=== PATIENT | female | born 1980 | race Caucasian/White ===

== ENCOUNTER 2018-02-17 07:17 | Day surgery (SDC) | END 2018-02-17 15:32 | disposition home or self-care (01) ==

== ENCOUNTER 2018-09-12 08:24 | Day surgery (SDC) | payer OTHER ==
[~2018-09-12] VITALS: Ht 160 cm; Wt 72.1 kg
[2018-09-12] VITALS (21 sets, daily range): BP systolic 92–133; BP diastolic 40–82; PULSE 64–96; RESP 14–24; Ht 160 cm; Wt 72.1 kg
[~2018-09-12 08:24] MED LIST: AMOX1TAB10 PO; CEFAZOLIN 2 GM/50 ML (PMX) 50 ML IVPB ONE; DOCU-159 PO; IBUP-1542 PO; LACTINEX PO; SOD CHLORIDE 0.9% 1,000 ML IV SCH
[2018-09-12] MEDS ORDERED: BUPIVACAINE 0.25% (MPF) 30 ML INJ ONE (11:28)
--- NOTE | 2018-09-12 11:52 | PREAC ---
Date/Time of Note Date/Time of Note DATE: 09/12/18 TIME: 11:50 Anesthesia Eval and Record Evaluation Time Pre-Procedure Interview DATE: 09/12/18 TIME: 11:50 Age 38 Sex female NPO: 8 hrs Preoperative diagnosis Appendicitis Planned procedure Lap Appendectomy Past Medical History Past Medical History: None Surgery & Anesthesia Issues No known issue Meds Anticoagulation: No Beta Gildardo within 24 hr: No Reason Beta Gildardo not given: Pt. not on B-Gildardo Discontinued Scripts Lactobacillus Acidophilus* (Lactinex*) 1 Tab Chew, 1 TAB PO BID for 10 Days, TAB Prov:SANDRITA BOWMAN MD 07/25/18 Docusate Sodium* (Docusate Sodium*) 100 Mg Capsule, 100 MG PO Q12H PRN for .CONSTIPATION for 7 Days, CAP otc Prov:SANDRITA BOWMAN MD 07/25/18 Ibuprofen* (Ibuprofen*) 600 Mg Tablet, 600 MG PO Q6H PRN for MILD PAIN LEVEL 1-3 for 7 Days, TAB otc Prov:SANDRITA BOWMAN MD 07/25/18 Amoxicillin/Potassium Clav (Amox-Clav 875-125 mg Tablet) 875-125 mg Tab, 875 MG PO BID for 3 Days, #8 TAB Prov:SANDRITA BOWMAN MD 07/25/18 Current Medications Sodium Chloride 1,000 ml @ 75 mls/hr [id number] IV ; Start 09/12/18 at 06:00; Stop 09/12/18 at 23:00 Meds reviewed: Yes Allergies Coded Allergies: No Known Drug Allergies (Unverified Allergy, Unknown, 09/12/18) Allergies Reviewed: Yes Labs/Studies Labs Reviewed: Reviewed by anesthesiologist Result Diagram: 09/12/1892909/12/1830 Laboratory Tests 09/12/18 09:30 test: Negative Studies: ECG Pre-procedure Exam Last vitals Vital Signs Date Temp Pulse Resp B/P (MAP) Pulse Ox O2 O2 Flow FiO2 Time Delivery Rate 09/12/18 97.8 80 126/82 97 09:54 (97) Airway: Adequate mouth opening, Adequate thyromental dist Mallampati: Mallampati II Teeth: Normal Lung: Normal Heart: Normal ASA Physical Status ASA physical status: 2 Emergency: None Planned Anesthetic General/MAC: ETT Planned Pain Management Parenteral pain med Pre-operative Attestations Prior to commencing anesthesia and surgery, the patient was re-evaluated, there was verification of: *The patient's identity *The results of appropriate recent lab work and preoperative vital signs *The above evaluation not changing prior to induction *Anesthetic plan, risk benefits, alternative and complications discussed with patient/family; questions answered; patient/family understands, accepts and wishes to proceed. DONTE REES MD Sep 12, 2018 11:52
[2018-09-12] MEDS ORDERED: MIDAZOLAM 1 MG/ML 2 ML INJ ONE (11:54)
[2018-09-12] MEDS ORDERED: GLYCOPYRROLATE 0.4 MG INJ ONE (12:45)
[2018-09-12] MEDS ORDERED: CEFAZOLIN 1 GM INJ ONE (12:45)
[2018-09-12] MEDS ORDERED: ROCURONIUM 50 MG INJ ONE (12:45)
[2018-09-12] MEDS ORDERED: PROPOFOL 20 ML ONE (12:45)
[2018-09-12] MEDS ORDERED: NEOSTIGMINE 3 MG/3 ML SYRINGE ONE (12:45)
[2018-09-12] MEDS ORDERED: LIDOCAINE 2% (SDV) 5 ML INJ ONE (12:45)
[2018-09-12] MEDS ORDERED: ONDANSETRON 4 MG INJ ONE (12:46)
[2018-09-12] MEDS ORDERED: METOCLOPRAMIDE 10 MG INJ ONE (12:48)
--- NOTE | 2018-09-12 12:49 | OPR ---
Date/Time of Note Date/Time of Note DATE: 09/12/18 TIME: 12:43 Operative Report Procedure Date: Sep 12, 2018 Preoperative Diagnosis subacute appendicitis Postoperative Diagnosis same Operation/Procedure Performed 1. laparoscopic appendectomy 2. subcutaneous therapeutic local anesthesia is injected throughout the incision sites Surgeon see signature line Sheet Tailer none Anesthesia Type: general Estimated Blood Loss: 0 - 10 ml's Transfusion none Specimen appendix Grafts/Implants none Complications none Pt Condition Post Procedure: stable Indications This is a 38-year-old female who has subacute appendicitis. She was evaluated at the ER with CT scan findings showing a dilated appendix. However at that time she was not treated with surgery but with antibiotics. She has had persistent pain in the right lower quadrant with no other explanation for the pain. She is brought to the OR for laparoscopic appendectomy possible open. Risks alternatives benefits and percent were discussed the patient. Potential complications including but not limited to bleeding infection pain and need for additional operations were discussed the patient. In particular as the CT scan showed a dilated appendix but no other obvious findings the patient was told that whether we find a problem with the appendix or not but the appendix will be removed. She expressed understanding and was okay with this discussion and consented to the operation. Procedure Description Patient is taken to the OR and prepped and draped in usual sterile fashion. Surgical time was performed. IV antibiotics given. Infraumbilical transverse incision was made with a 15 blade. Dissection with cautery was carried to the fascia. The fascia was grasped with [place]'s and divided with curved [place] scissors. 0 Vicryl U stitch was placed into the fascial incision. Welch trocar was introduced. Pneumoperitoneum was established. Suprapubic 5 mm optical trocar was placed under direct visualization ensuring that the trocar is kept far away from the bladder. Left lower quadrant 12 mm optical trochars placed under direct visualization. The patient was placed in reverse Trendelenburg with the right side up. There is visualization of the ileum and the right colon. Orientation is made to identify the appendix. The base of the appendix is identified and dissected out carefully using [place] graspers. A 35 mm echelon vascular stapler was used to divide the base of the appendix. The mesoappendix was also identified and divided with a 35 mm echelon vascular stapler. Additional clips were applied for additional hemostasis of the mesoappendix. The appendix was then retrieved using Endo Catch bag. Good hemostasis was again ensured. All ports were removed under direct visualization. The infraumbilical 0 Vicryl was tied down. All incisions were then closed using sage. Therapeutic subcutaneous local anesthesia was injected at the incision site. Dressings were applied. Alonso LOZANO Sep 12, 2018 12:49
--- NOTE | 2018-09-12 12:57 | PAC ---
Date/Time of Note Date/Time of Note DATE: 09/12/18 TIME: 12:57 Post-Anesthesia Notes Post-Anesthesia Note Last documented vital signs Vital Signs Date Temp Pulse Resp B/P (MAP) Pulse Ox O2 O2 Flow FiO2 Time Delivery Rate 09/12/18 97.8 80 126/82 97 09:54 (97) Activity: WNL Respiratory function: WNL Cardiovascular function: WNL Mental status: Baseline Pain reasonably controlled: Yes Hydration appropriate: Yes Nausea/Vomiting absent: Yes Comments BP:133/78, P:74, Spo2:100%, T:98,8 DONTE REES MD Sep 12, 2018 12:57
[2018-09-12] MEDS ORDERED: ONDANSETRON 4 MG INJ IV PRN (13:00)
[2018-09-12] MEDS ORDERED: HYDROCODONE/APAP (5/325) TAB PO ONE (13:00)
[2018-09-12] MEDS ORDERED: DIPHENHYDRAMINE 50 MG INJ IV PRN (13:00)
[2018-09-12] MEDS ORDERED: KETOROLAC 30 MG INJ IV PRN (13:00)
[2018-09-12] MEDS ORDERED: FENTAnyl 50 MCG/ML VIAL IV PRN (13:00)
[2018-09-12] MEDS ORDERED: METOCLOPRAMIDE 10 MG INJ IV PRN (13:00)
[2018-09-12] MEDS ORDERED: HYDROmorphONE 1 MG/5 ML IV SYRINGE IV PRN (13:00)
[2018-09-12] MEDS: HYDROmorphONE 1 MG/5 ML IV SYRINGE IV PRN ×2 (13:03→13:11)
[2018-09-12] MEDS: MEPERIDINE 25 MG INJ IV PRN ×2 (13:11→13:57)
[2018-09-12] MEDS ORDERED: MEPERIDINE 25 MG INJ IM STA (14:01)
[2018-09-12] MEDS: SOD CHLORIDE 0.45% 1,000 ML IV SCH (19:01)
[2018-09-12] MEDS: morphine 2 MG INJ IV PRN (21:14)
[2018-09-12] MEDS: ONDANSETRON 4 MG INJ IV PRN (21:43)
[2018-09-13] MEDS: ONDANSETRON 4 MG INJ IV PRN ×3 (01:43→16:45)
[2018-09-13] MEDS: morphine 2 MG INJ IV PRN ×2 (01:43→06:00)
[2018-09-13] MEDS: SOD CHLORIDE 0.45% 1,000 ML IV SCH ×2 (02:00→06:00)
[2018-09-13 02:07] VITALS: BP 104/63; PULSE 63; RESP 19
[2018-09-13 08:24] VITALS: BP 108/67; PULSE 81; RESP 18
[2018-09-13] MEDS: HYDROCODONE/APAP (5/325) TAB PO PRN ×2 (11:35→16:45)
[2018-09-13 14:00] VITALS: BP 116/77; PULSE 61; RESP 20
--- NOTE | 2018-09-13 14:23 | PN ---
Date/Time of Note Date/Time of Note DATE: 09/13/18 TIME: 14:22 Assessment/Plan VTE Prophylaxis Risk score (from Ns)>0 risk: 2 SCD applied (from Ns): No SCD contraindicated: other Pharmacological prophylaxis: other Lines/Catheters IV Catheter Type (from Nrsg): Peripheral IV Urinary Cath still in place: No Assessment/Plan Assessment/Plan s/p lap appy doing well dc home Result Diagram: 09/12/18 0930 09/12/18 0930 Results 24hrs Laboratory Tests Test 09/13/18 06:15 Lab Scanned Report LAB Subjective 24 Hr Interval Summary Free Text/Dictation patient doing well, tolerating diet Exam/Review of Systems Exam Vitals Vital Signs Date Temp Pulse Resp B/P (MAP) Pulse Ox O2 O2 Flow FiO2 Time Delivery Rate 09/13/18 98.1 81 18 108/67 98 08:24 (81) 09/12/18 Room Air 14:10 Intake and Output 09/12/18 09/12/18 09/13/18 1515:00 23:00 07:00 IntakeIntake Total 1000 ml 300 ml 1000 ml OutputOutput Total 10 ml BalanceBalance 990 ml 300 ml 1000 ml Exam incision had bled a little and is now not bleeding c/d/i Results Results 24hrs Laboratory Tests Test 09/13/18 06:15 Lab Scanned Report LAB Medications Medication Current Medications Morphine Sulfate (morphine) 2 mg Q2H PRN IV SEVERE PAIN LEVEL 7-10 Last administered on 09/13/18at 06:00; Admin Dose 2 MG; Start 09/12/18 at 16:00 Sodium Chloride 1,000 ml @ 100 mls/hr Q10H IV Last administered on 09/13/18at 06:00; Admin Dose 100 MLS/HR; Start 09/12/18 at 16:00 Ondansetron HCl (Zofran Inj) 4 mg Q4H PRN IV NAUSEA AND/OR VOMITING Last administered on 09/13/18at 05:59; Admin Dose 4 MG; Start 09/12/18 at 21:30 Acetaminophen/ Hydrocodone Bitart ([place] (5/325)) 1 tab Q4H PRN PO MODERATE KENNY N LEVEL 4-10 Last administered on 09/13/18at 11:35; Admin Dose 1 TAB; Start 09/13/18 at 11:30 Alonso LOZANO Sep 13, 2018 14:23
--- NOTE | 2018-09-13 14:35 | PDOCDIS ---
Discharge Instructions CONDITION [id number] Patient Condition: [id number] Good HOME CARE INSTRUCTIONS: [id number] Diet Instructions: Hlfcv3h Regular ACTIVITY: [id number] Activity Restrictions: Skqdd1x Slowly Increase Activity Avoid heavy lifting [id number] Bathing Restrictions: [id number] Shower FOLLOW UP/APPOINTMENTS Follow-up Plan F/u with Dr. Lofton next week ROMEO SALINAS MD Sep 13, 2018 14:35
--- NOTE | 2018-09-13 16:54 | HP ---
DATE OF ADMISSION: 09/12/2018 CHIEF COMPLAINT AND HISTORY OF PRESENT ILLNESS: The patient is a 38-year-old female who was admitted at [facility] back in 07/2018 due to appendicitis. The patient had CT of the abdo men. The patient was diagnosed with possible appendicitis. The patient was seen by PROGRAM DEVELOPMENT SPECIALIST as well as Bhavna Gardner. The patient was treated with antibiotic and was seen by Dr. Reid Pettit. The patient w as subsequently seen by Dr. Lofton as an outpatient and was diagnosed with subacute appendicitis. The p pennie was brought in to the hospital and underwent elective laparoscopic appendectomy. The patient had significant postoperative pain and was admitted for further evaluation. The patient had postoper ative nausea for which the patient was given Zofran. The patient did not require any perioperative a ntibiotic. Pain was managed with [place] and IV morphine. The patient did not have any chest pain or shortness of breath. No history of vomiting today. The patient has been started on a regular diet. No history of temperature spike. No history of headache, dizziness, syncope. No history of fever o r chills. No history of vomiting today. No history of resting leg pain or any focal weakness. REVIEW OF SYSTEMS: Unremarkable. PAST MEDICAL HISTORY: As stated above. ALLERGIES: NONE. PAST SURGICAL HISTORY: The patient's bilateral breast fibroadenoma removal. FAMILY HISTORY: Negative for patient's condition. SOCIAL HISTORY: No smoking or alcohol. PHYSICAL EXAMINATION: GENERAL: The patient is awake, alert, fairly oriented. VITAL SIGNS: On the day of admission, temperature 98, pulse 96, respirations 18, blood pressure 99/5 6, O2 saturation 98% on room air. HEENT: No eye discharge. Conjunctivae normal. Oropharynx clear. NECK: Supple. No thyromegaly. CHEST: Fairly clear. CARDIOVASCULAR: S1, S2 normal. No murmur. ABDOMEN: Soft, nondistended. [place] intact. EXTREMITIES: No edema. NEUROLOGIC: The patient is awake, alert, fairly oriented with no gross focal deficit. IMPRESSION: Subacute appendicitis status post laparoscopic appendectomy. PLAN: Postoperatively, the patient was started on IV fluid, IV Zofran, p.o. [place] and IV morphine. ADDENDUM: The patient was seen by Dr. Lofton today and the patient does not have any fever or chills an d has been tolerating diet, and the wound looks clean. The patient has been cleared for discharge by Dr. Lofton. LABORATORY DATA: WBC 5.4, hemoglobin 12.4, platelet 253. Sodium 146, potassium 3.9, BUN 17, creatin ine 0.6. FOLLOWUP: The patient is to follow with Dr. Lofton next week. The patient has been given prescription of [place] by Dr. Lofton to be taken as directed. Dictated By: ROMEO PINEDO/GONZALO Conf#: [id number] DID#: [id number]
== END 2018-09-13 17:20 | disposition home or self-care (01) ==
LOC: SDS 08:24 → REC 15:19 → UNDOADMIN 15:19 → SDS 15:19 → PP2 18:22 → SDS 09-13 17:20
PROVIDERS: ATTEND Surgery
DX: K36 Other appendicitis (principal)
CPT/HCPCS: 44970; 80053; 84703; 85025; 85610; 85730; 88304; J0690; J1170; J1885; J2175; J2250; J2270; J2405; J2710; J2765; J3010; Z7512; Z7610